=== PATIENT | male | born 1960 | race Caucasian/White ===

== ENCOUNTER 2020-11-15 08:10 | Emergency (ER) | payer SELFPAY ==
[~2020-11-15] VITALS: Ht 182 cm; Wt 86.0 kg
[~2020-11-15 08:10] MED LIST: ACHD5005 PO; HYDR1TAB PO; NAPR550T PO
[2020-11-15 08:52] LABS: CLARITY,URINE CLEAR; COLOR,URINE YELLOW; GLUCOSE, URINE (UA) NEGATIVE (NEGATIVE); KETONES,URINE TRACE (NEGATIVE); LEUKOCYTE ESTERASE ,URINE NEGATIVE (NEGATIVE); NITRITE,URINE NEGATIVE (NEGATIVE); PROTEIN,URINE TRACE (NEGATIVE)
[2020-11-15 08:56] LABS: BASOPHILS # (AUTO) 0.1 10^3/uL (0.0-0.1); BASOPHILS % (AUTO) 1 % (0-10); EOSINOPHILS # (AUTO) 0.2 10^3/uL (0.0-0.3); EOSINOPHILS % (AUTO) 2 % (0-10); HEMATOCRIT 47 % (40-54); HEMOGLOBIN 15.5 g/dL (13.3-17.7); LYMPHOCYTES # (AUTO) 3.5 10^3/uL (1.0-4.0); LYMPHOCYTES % (AUTO) 35 % (12-44); MEAN CORPUSCULAR HEMOGLOBIN 30 pg (25-34); MEAN CORPUSCULAR HGB CONC 33 g/dL (32-36); MEAN CORPUSCULAR VOLUME 91 fL (80-99); MEAN PLATELET VOLUME 9.1 fL (9.0-12.2); MONOCYTES # (AUTO) 0.8 10^3/uL (0.0-1.0); MONOCYTES % (AUTO) 9 % (0-12); NEUTROPHILS # (AUTO) 5.3 10^3/uL (1.8-7.8); NEUTROPHILS % (AUTO) 54 % (42-75); PLATELET COUNT 373 10^3/uL (130-400); WHITE BLOOD COUNT 9.9 10^3/uL (4.3-11.0)
[2020-11-15 09:07] LABS: ALBUMIN 4.2 GM/DL (3.2-4.5); CHLORIDE 102 MMOL/L (98-107); SODIUM 140 MMOL/L (135-145)
[2020-11-15 09:08] LABS: CALCIUM 9.6 MG/DL (8.5-10.1)
[2020-11-15 09:09] LABS: GLUCOSE 113 MG/DL (70-105); TOTAL PROTEIN 7.4 GM/DL (6.4-8.2)
[2020-11-15 09:10] LABS: CARBON DIOXIDE 29 MMOL/L (21-32)
[2020-11-15 09:11] LABS: BILIRUBIN,TOTAL 0.7 MG/DL (0.1-1.0)
[2020-11-15 09:13] LABS: ALKALINE PHOSPHATASE 82 U/L (40-136); CREATININE SERUM 0.94 MG/DL (0.60-1.30); GFR ESTIMATED > 60
[2020-11-15 09:14] LABS: BUN/CREATININE RATIO 16
[2020-11-15 09:16] LABS: ALANINE AMINOTRANSFERASE 23 U/L (0-55)
[2020-11-15 09:20] LABS: BILIRUBIN,URINE 1+ (NEGATIVE); WBC,URINE RARE /HPF
[2020-11-15 09:21] LABS: BACTERIA,URINE TRACE /HPF; SQUAMOUS EPITHELIAL CELL,UR RARE /HPF
[2020-11-15] MEDS ORDERED: HOLD METFORMIN - RECEIVED CONTRAST 20 ML VIAL IV SCH (10:00)
[2020-11-15] MEDS ORDERED: NS 100 ML (IVPB) BAG IV ONE (10:00)
[2020-11-15] MEDS ORDERED: CATHETER FLUSH 10 ML SYR IV PRN (10:00)
[2020-11-15] MEDS ORDERED: IOHEXOL 350 MG/ML 100 ML (OMNIPAQUE 350) VIAL IV ONE (10:00)
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
[2020-11-15] MEDS ORDERED: KETOROLAC 30 MG/ML VIAL ONE (10:48)
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
[2020-11-15] MEDS ORDERED: KETOROLAC 30 MG/ML VIAL IVP ONE (11:00)
[2020-11-15] MEDS ORDERED: ACHD5005 PO (11:00)
[2020-11-15 11:53] VITALS: BP 144/74
== END 2020-11-15 11:53 | disposition home or self-care (01) ==
LOC: EDUNIT# 08:10 → ER 08:13
DX: S22.32XA Fracture of one rib, left side, initial encounter for closed fracture (principal); R31.9 Hematuria, unspecified; E27.9 Disorder of adrenal gland, unspecified; N28.1 Cyst of kidney, acquired; K76.89 Other specified diseases of liver; F17.200 Nicotine dependence, unspecified, uncomplicated; V28.4XXA Motorcycle driver injured in noncollision transport accident in traffic accident, initial encounter
CPT/HCPCS: 36415; 71260; 74177; 80053; 81000; 85025